=== PATIENT | male | born 1995 | race Caucasian/White ===

== ENCOUNTER → 2021-04-06 19:28 | Outpatient (CLI) | payer OTHER, SELFPAY | PROVIDERS: Visit Provider Nurse Practitioner Family | DX: Z20.822 Contact with and (suspected) exposure to COVID-19 (principal); J02.9 Acute pharyngitis, unspecified | CPT/HCPCS: C9803; U0003; U0005 ==

== ENCOUNTER 2021-04-10 10:42 | Emergency (ER) | payer OTHER, SELFPAY ==
[2021-04-10 11:24] VITALS: BP 171/120; PULSE 99; RESP 20; TEMP 37.1; O2SAT 98; BMI 31.1
--- NOTE | 2021-04-10 11:25 | HMH.EDUTC ---
[facility] [place] Clinical Impression: Mouth ulcers Sinusitis Qualifiers: Sinusitis location: unspecified location Chronicity: acute Recurrence: non-recurrent Qualified Code(s): J01.90 - Acute sinusitis, unspecified Pharyngitis Qualifiers: Pharyngitis/tonsillitis etiology: unspecified etiology Qualified Code(s): J02.9 - Acute pharyngitis, unspecified Disposition: Home, Self-Care Condition on Discharge: Good Instructions: DI for Pharyngitis/Tonsillopharyngitis -- Adult, DI for Sinusitis, Lamotrigine Additional Instructions: Stop the amoxicillin. Start the azithromycin. Start the prednisone. Gargle with salt water 3 times per day. Follow up with the provider that prescribes you the lamictal. Mouth ulcers while on lamictal can be a sign of a very serious side effect. I recommended stopping the lamictal, but that is between you and your primary provider if you do not wish to. GO TO THE ER FOR WORSENING SYMPTOMS OR CONCERNS, ESPECIALLY ANY WORSENING ULCERS IN YOUR MOUTH OR SKIN ISSUES Prescriptions: predniSONE [Prednisone 20mg Tab] 20 mg PO BID 5 Days #10 tab Transmission Status: Received by [email or web address] Azithromycin [Z-Adan 250mg Tab*] 250 mg PO UD DOSE PK #6 tab Transmission Status: Received by [email or web address] Referrals: Provider,Referral, [Primary Care Provider] - Forms: Work/School Release Time of Disposition: 11:49 Medical Decision Making - Medical Records Medical records reviewed: No: I reviewed the patient's medical records. - Saurabh Inquiry Pt receiving controlled substance: No Vital Signs: 04/10/21 11:24 04/10/21 11:56 Temperature 98.8 F 98.8 F Temperature Source Oral Pulse Rate 99 H Pulse Rate [Right Brachial] 99 H Respiratory Rate 20 18 Blood Pressure 168/99 H Blood Pressure [Right Arm] 171/120 H Blood Pressure Mean [Right Arm] 137 Blood Pressure Source [Right Arm] Automatic Cuff Blood Pressure Position [Right Arm] Sitting 02 Sat by Pulse Oximetry 98 Oxygen Delivery Method Room Air - Lab Data Lab results reviewed: Yes: I reviewed the patient's lab results. [facility] [place] - General Stated complaint: sinus infection, blisters in throat, weakness, Time Seen by Provider: 04/10/21 11:25 - History of Present Illness Provider Complaint: He states that he has been having sinus pressure and sinus infection symptoms for the past 2 weeks. He was checked for strep throat and covid-19 3 days ago and the results were negative. He states that he is having ulcers inside his mouth also. - Related Data Home Medications Medication Instructions Recorded Confirmed lamotrigine 200 mg tablet 200 mg PO DAILY 04/06/21 04/06/21 Previous Rx's Medication Instructions Recorded amoxicillin 500 mg capsule 500 mg PO Q12H 10 Days #20 cap 04/06/21 Azithromycin [Z-Adan 250mg Tab*] 250 mg PO UD DOSE PK #6 tab 04/10/21 predniSONE [Prednisone 20mg 20 mg PO BID 5 Days #10 tab 04/10/21 Tab] Allergies Allergy/AdvReac Type Severity Reaction Status Date / Time No Known Allergies Allergy Verified 04/06/21 16:07 [facility] History - Hepatitis A Screen Attestation statement:: This patient has been screened for Hepatitis A risk factors. I have reviewed the patient's past medical history: Yes Medical History: Reports:: Asthma, Depression Comment: severe nut allergy Other Surgeries: Yes: Appendectomy - 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 Smoking Status: Never smoker Alcohol Intake: never Occupational Status: employed - Psychiatric History Pschychiatric History:: Reports:: Depression Family Hx:: Coronary Artery Disease ROS Obtained: Yes All systems reviewed & no additional complaints - Constitutional Constitutional: Denies chills, Denies fever(s), Reports poor appetite, Reports malaise - Eyes Eyes: Denies eye discharge - ENT Ears, Nose, Mouth, and Throat: Reports as per HPI, Denies bleeding gums - Cardiovascular Cardiovascular: Denies chest pain - Respir
[2021-04-10 11:56] VITALS: BP 168/99; PULSE 99; RESP 18; TEMP 37.1
== END 2021-04-10 11:56 | disposition home or self-care (01) ==
PROVIDERS: Emergency Provider Nurse Practitioner Family
DX: J01.90 Acute sinusitis, unspecified (principal); K12.1 Other forms of stomatitis; J02.9 Acute pharyngitis, unspecified; J45.909 Unspecified asthma, uncomplicated; F33.1 Major depressive disorder, recurrent, moderate
CPT/HCPCS: 99202; G0463

== ENCOUNTER 2021-11-02 13:14 | Emergency (ER) | payer OTHER, SELFPAY ==
[2021-11-02 13:30] VITALS: BP 141/98; PULSE 108; RESP 21; TEMP 37.4; O2SAT 97; BMI 28.5
--- NOTE | 2021-11-02 14:25 | HMH.EDUTC ---
[facility] [place]ression: Sinusitis Qualifiers: Sinusitis location: unspecified location Chronicity: unspecified Qualified Code(s): J32.9 - Chronic sinusitis, unspecified Disposition: Home, Self-Care Condition on Discharge: Good Instructions: Sinusitis, DI for Sinusitis Additional Instructions: *Monitor Temp, Over the counter Motrin or Tylenol as directed/as needed Tylenol every 4 hours and Motrin every 6 hours (as long as your family doctor has told you that you can take it) for fever or pain. and straight to ER if unable to lower temp less than 101.0 after medication given *Warm salt water gargles may help to soothe the throat *Throat Lozenges *Warm fluids like tea with honey may help to soothe the throat *Sleep elevated *Humidifier/Vaporizer Take medication as prescribed Return if needed Follow up IMMEDIATELY for new or worsening symptoms or no Noticeable improvement over the next 48-72 hours. 911 for difficulty breathing or swallowing Prescriptions: Benzonatate [Benzonatate 100mg cap] 100 mg PO Q8HP PRN #15 cap PRN Reason: Cough Transmission Status: Pending to [facility] Amoxicillin/Potassium Clav [Amox-Clav 875-125 mg Tablet] 1 tab PO BID #14 tab Transmission Status: Pending to [facility] methylPREDNISolone [Medrol 4mg tab] 4 mg PO DIRECTED #21 tab Transmission Status: Pending to [facility] Referrals: Provider,Referral, MD [Primary Care Provider] - As needed Forms: Work/School Release Time of Disposition: 14:46 Medical Decision Making - Saurabh Inquiry Pt receiving controlled substance: No Saurahb was queried for this patient: No Vital Signs: 11/02/21 13:30 Temperature 99.4 F Temperature Source Oral Pulse Rate [Right Brachial] 108 H Respiratory Rate 21 Blood Pressure [Right Arm] 141/98 H Blood Pressure Mean [Right Arm] 112 Blood Pressure Source [Right Arm] Automatic Cuff Blood Pressure Position [Right Arm] Sitting 02 Sat by Pulse Oximetry 97 Oxygen Delivery Method Room Air [facility] [place] - General Stated complaint: cough, chest congestion, sinus pressure Time Seen by Provider: 11/02/21 14:25 Mode of Arrival: Ambulatory Source of Information: Patient Limitations: No Limitations Description of Symptoms (Recalled from Triage Doc. by RN): PATIENT C/O COUGH, WEAKNESS, AND SINUS PRESSURE HEENT Symptoms (Recalled from RN notes): Yes Resp Symptoms (Recalled from RN notes): Yes Skin Symptoms (Recalled from RN notes): No MS Symptoms (Recalled from RN notes): No Functional Status (Recalled from RN notes): WNL - History of Present Illness Provider Complaint: Patient states that he has been having sore throat, sinus pain and pressure and cough that is worse if he lays down States that he feels like it is running down the back of his throat States that today he felt the pressure worse behind his eyes and felt like it was getting worse so he came in - Related Data Home Medications Medication Instructions Recorded Confirmed Sertraline HCl [Zoloft] 25 mg PO DAILY 11/02/21 11/02/21 atenoloL [Atenolol 50mg Tab] 50 mg PO DAILY 11/02/21 11/02/21 Previous Rx's Medication Instructions Recorded Amoxicillin/Potassium Clav 1 tab PO BID #14 tab 11/02/21 [Amox-Clav 875-125 mg Tablet] Benzonatate [Benzonatate 100mg 100 mg PO Q8HP PRN #15 cap 11/02/21 cap] methylPREDNISolone [Medrol 4mg 4 mg PO DIRECTED #21 tab 11/02/21 tab] Allergies Allergy/AdvReac Type Severity Reaction Status Date / Time No Known Allergies Allergy Verified 04/06/21 16:07 - Worker's Comp Is this a Worker's Comp case?: No [facility] History - Hepatitis A Screen Attestation statement:: This patient has been screened for Hepatitis A risk factors. I have reviewed the patient's past medical history: Yes Medical History: Reports:: Asthma, Depression Comment: severe nut allergy Other Surgeries: Yes: Appendectomy - 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 Smoking Status: Nev
[2021-11-02 14:54] VITALS: BP 141/98; PULSE 108; RESP 21; TEMP 37.4; O2SAT 97
== END 2021-11-02 14:56 | disposition home or self-care (01) ==
PROVIDERS: Emergency Provider Nurse Practitioner
DX: J32.9 Chronic sinusitis, unspecified (principal)
CPT/HCPCS: 99212; G0463

== ENCOUNTER 2021-11-10 10:58 | Emergency (ER) | payer OTHER, SELFPAY ==
--- NOTE | 2021-11-10 11:18 | HMH.EDUTC ---
[facility] [place] Clinical Impression: Chronic sinusitis Qualifiers: Sinusitis location: unspecified location Qualified Code(s): J32.9 - Chronic sinusitis, unspecified Allergic rhinitis Qualifiers: Allergic rhinitis trigger: unspecified Allergic rhinitis seasonality: unspecified Qualified Code(s): J30.9 - Allergic rhinitis, unspecified Disposition: Home, Self-Care Condition on Discharge: Good Instructions: DI for Sinusitis Additional Instructions: Drink plenty of fluids. Take tylenol or ibuprofen for pain or fever. Take the medications as directed. Follow up with your regular doctor. GO TO THE ER FOR ANY WORSENING SYMPTOMS Throw your tooth brush away and get a new one. Don't start the oral steroids until tomorrow, since you had the shot here today. Prescriptions: Benzonatate [Benzonatate 100mg cap] 100 mg PO TIDP PRN #30 cap PRN Reason: Cough Transmission Status: Received by [facility] Fluticasone Propionate [Flonase 50mcg nasal spray 16gm] 1 spr NS DAILY 30 Days #120 each Transmission Status: Received by [facility] methylPREDNISolone [Medrol] 4 mg PO DIRECTED 6 Days #21 packet Transmission Status: Received by [facility] Azithromycin [Z-Adan 250mg Tab*] 250 mg PO UD DOSE PK #6 tab Transmission Status: Received by [facility] Referrals: Provider,Referral, MD [Primary Care Provider] - Forms: Work/School Release Time of Disposition: 11:47 Medical Decision Making - Medical Records Medical records reviewed: No: I reviewed the patient's medical records. - Saurabh Inquiry Pt receiving controlled substance: No Vital Signs: 11/10/21 11:23 11/10/21 11:52 Temperature 98.1 F 98.1 F Temperature Source Oral Pulse Rate 88 Pulse Rate [Left Radial] 88 Respiratory Rate 17 17 Blood Pressure 152/98 H Blood Pressure [Right Arm] 152/98 H Blood Pressure Mean [Right Arm] 116 02 Sat by Pulse Oximetry 99 - Lab Data Lab Results 11/10/21 11:15: Group A Strep Rapid Negative Orders (Tests/Meds): ED MEDICATIONS Discontinued Medications Generic Name Dose Route Start Last Admin Trade Name Freq PRN Reason Stop Dose Admin Ceftriaxone Sodium 1 gm 11/10/21 11:32 11/10/21 11:49 Ceftriaxone 1gm Vial IM 11/10/21 11:33 1 gm ONCE ONE Administration Lidocaine HCl 0 ml 11/10/21 11:32 11/10/21 11:49 Lidocaine 1% 5ml Pf Vial IM 11/10/21 11:33 2 ml ONCE ONE Administration Methylprednisolone Sodium Succinate 125 mg 11/10/21 11:32 11/10/21 11:50 Methylprednisolone Sod Succ 125mg Vial IM 11/10/21 11:33 125 mg ONCE ONE Administration ORDERS Category Date Time Status Full Resp Panel w/COVID ([facility]) Routine Lab 11/10/21 11:15 Received Strep Screen Confirmation Stat Micro 11/10/21 11:15 Received [facility] UTC HPI - General Stated complaint: Sore Throat,Congestion,Fatigue Time Seen by Provider: 11/10/21 11:19 Mode of Arrival: Ambulatory - History of Present Illness Provider Complaint: He is back today with continued sinus infecton symptoms. He has a history of having severe environalmental allergies and chronic sinus issues. He states that he did get better while he was on the medications prescribed at his last visit, but once he finished them his symptoms returned. - Related Data Home Medications Medication Instructions Recorded Confirmed Sertraline HCl [Zoloft] 25 mg PO DAILY 11/02/21 11/10/21 atenoloL [Atenolol 50mg Tab] 50 mg PO DAILY 11/02/21 11/10/21 Previous Rx's Medication Instructions Recorded Amoxicillin/Potassium Clav 1 tab PO BID #14 tab 11/02/21 [Amox-Clav 875-125 mg Tablet] Benzonatate [Benzonatate 100mg 100 mg PO Q8HP PRN #15 cap 11/02/21 cap] methylPREDNISolone [Medrol 4mg 4 mg PO DIRECTED #21 tab 11/02/21 tab] Azithromycin [Z-Adan 250mg Tab*] 250 mg PO UD DOSE PK #6 tab 11/10/21 Benzonatate [Benzonatate 100mg 100 mg PO TIDP PRN #30 cap 11/10/21 cap]
[2021-11-10 11:23] VITALS: BP 152/98; PULSE 88; RESP 17; TEMP 36.7; O2SAT 99; BMI 30.7
[2021-11-10 11:33] LABS: Adenovirus,PCR Not Detected (NotDetected); Bordetella Pertussis Not Detected (NotDetected); Chlamydophila Pneumoniae, PCR Not Detected (NotDetected); Coronavirus 19, PCR Not Detected (NotDetected); Coronavirus 229E Not Detected (NotDetected); Coronavirus NL63 Not Detected (NotDetected); Coronavirus OC43 Not Detected (NotDetected); Coronovirus HKU1,PCR Not Detected (NotDetected); Human Metapneumovirus Not Detected (NotDetected); Influenza A, PCR Not Detected (NotDetected); Influenza AH1, 2009 Not Detected (NotDetected); Influenza AH1, PCR Not Detected (NotDetected); Influenza AH3,PCR Not Detected (NotDetected); Influenza B, PCR Not Detected (NotDetected); Mycoplasma Pneumoniae, PCR Not Detected (NotDetected); Parainfluenza 1, PCR Not Detected (NotDetected); Parainfluenza 2, PCR Not Detected (NotDetected); Parainfluenza 3, PCR Not Detected (NotDetected); Parainfluenza 4, PCR Not Detected (NotDetected); Respiratory Syncytial Virus Not Detected (NotDetected)
[2021-11-10 11:50] LABS: Strep Scrn Group A (Rapid) Negative (Negative)
[2021-11-10 11:52] VITALS: BP 152/98; PULSE 88; RESP 17; TEMP 36.7
[2021-11-10 13:50] LABS: Rhinovirus/Enterovirus Detected (NotDetected)
== END 2021-11-10 12:02 | disposition home or self-care (01) ==
LOC: UTC 11:03
PROVIDERS: Emergency Provider Nurse Practitioner Family
DX: J32.9 Chronic sinusitis, unspecified (principal); B34.8 Other viral infections of unspecified site
CPT/HCPCS: 87430; 87581; 87632; 87798; 99212; C9803; G0463; J0696; U0003; U0005

== ENCOUNTER 2021-12-01 11:40 | Emergency (ER) | payer OTHER, SELFPAY ==
[2021-12-01 11:45] VITALS: BP 139/89; PULSE 68; RESP 19; TEMP 36.7; O2SAT 97; BMI 31.2
--- NOTE | 2021-12-01 11:55 | HMH.EDUTC ---
[facility] [place]ression: Uvulitis Disposition: Home, Self-Care Condition on Discharge: Good Instructions: Methylprednisolone, DI for Uvulitis Additional Instructions: *Monitor Temp, Over the counter Motrin or Tylenol as directed/as needed Tylenol every 4 hours and Motrin every 6 hours (as long as your family doctor has told you that you can take it) for fever or pain. and straight to ER if unable to lower temp less than 101.0 after medication given *Warm salt water gargles may help to soothe the throat *Throat Lozenges *Warm fluids like tea with honey may help to soothe the throat *Sleep elevated *Humidifier/Vaporizer Make sure that you are drinking plenty of water to stay hydrated Make sure to discuss with your Family Doctor if no improvement Follow up with ENT if no improvement or any worsening of symptoms Your throat swab was sent for culture. Those results are typically sent to your primary care. Be sure to follow up in 2-3 days with your family doctor/primary care physician if no improvement so they can review those result and treat if necessary. If you don?t have a primary care doctor, I recommend you get one but in the mean time, you will have to return to a walk in clinic Follow up IMMEDIATELY for new or worsening symptoms or no Noticeable improvement over the next 48-72 hours. 911 for difficulty breathing or swallowing Prescriptions: methylPREDNISolone [Medrol 4mg tab] 4 mg PO DIRECTED #21 tab Transmission Status: Received by [facility] Cefdinir [Omnicef 300mg Capsule] 300 mg PO BID 7 Days #14 cap Transmission Status: Received by [facility] Referrals: Provider,MD Priya [Primary Care Provider] - As needed Kyaw Galloway MD [Physician] - Bryan Fernandez MD [Physician] - Forms: Work/School Release Medical Decision Making - Saurabh Inquiry Pt receiving controlled substance: No Saurabh was queried for this patient: No Vital Signs: 12/01/21 11:45 12/01/21 12:25 Temperature 98.1 F 98.1 F Temperature Source Oral Pulse Rate 68 Pulse Rate [Right Brachial] 68 Respiratory Rate 19 19 Blood Pressure 139/89 Blood Pressure [Right Arm] 139/89 Blood Pressure Mean [Right Arm] 105 Blood Pressure Source [Right Arm] Automatic Cuff Blood Pressure Position [Right Arm] Sitting 02 Sat by Pulse Oximetry 97 Oxygen Delivery Method Room Air - Lab Data Lab results reviewed: Yes: I reviewed the patient's lab results. Lab Results 12/01/21 11:45: Strep Scn Rapid Clinic Negative 12/01/21 11:54: Monoscreen Negative Orders (Tests/Meds): ED MEDICATIONS Discontinued Medications Generic Name Dose Route Start Last Admin Trade Name Oanh PRN Reason Stop Dose Admin Methylprednisolone Sodium Succinate 125 mg 12/01/21 12:19 12/01/21 12:25 Methylprednisolone Sod Succ 125mg Vial IM 12/01/21 12:20 125 mg ONCE ONE Administration ORDERS Category Date Time Status Strep Screen Confirmation Stat Micro 12/01/21 11:45 Re[place] [facility] [place] - General Stated complaint: swollen throat Time Seen by Provider: 12/01/21 11:55 Mode of Arrival: Ambulatory Source of Information: Patient Limitations: No Limitations Description of Symptoms (Recalled from Triage Doc. by RN): PATIENT C/O SWOLLEN UVULA SINCE THIS MORNING HEENT Symptoms (Recalled from RN notes): Yes Resp Symptoms (Recalled from RN notes): No Skin Symptoms (Recalled from RN notes): No MS Symptoms (Recalled from RN notes): No Functional Status (Recalled from RN notes): WNL - History of Present Illness Provider Complaint: Patient states that he woke up this morning with scratchy throat and swollen uvulea States that he has been having drainage in the back of his throat and congestion but hard to clear his throat due to the swollen uvulea Denies anything new that he may be having a reaction too - Related Data Home Medications Medication Instructions Recorded Confirmed Sertraline HCl [
[2021-12-01 12:00] LABS: UTC Strep Screen (Rapid) Negative (Negative)
[2021-12-01 12:13] LABS: Monoscreen (Rapid) Negative (Negative)
[2021-12-01 12:25] VITALS: BP 139/89; PULSE 68; RESP 19; TEMP 36.7; O2SAT 97
== END 2021-12-01 12:35 | disposition home or self-care (01) ==
PROVIDERS: Emergency Provider Nurse Practitioner
DX: K12.2 Cellulitis and abscess of mouth (principal)
CPT/HCPCS: 86318; 87880; 96372; 99212; G0463

== ENCOUNTER 2022-08-19 15:18 | Emergency (ER) | payer BC, SELFPAY ==
[2022-08-19 15:40] VITALS: BP 163/103; PULSE 80; RESP 18; TEMP 37.2; O2SAT 97; BMI 33.7
--- NOTE | 2022-08-19 16:10 | EXP.UTC ---
Discharge Plan Disposition Patient Disposition: Home, Self-Care Condition: Good Prescriptions Prescriptions: New azithromycin [azithromycin] 250 mg tablet 250 mg PO DIRECTED Qty: 6 0RF Rx Instructions: Take two (2) tablets on day #1, then one (1) tablet day #2 thru #5 prednisone [prednisone] 20 mg tablet 20 mg PO BID Qty: 10 0RF No Action sertraline 25 MG tablet 25 mg PO DAILY atenolol 50 MG tablet 50 mg PO DAILY methylprednisolone 4 MG tablet 4 mg PO DIRECTED Qty: 21 0RF Rx Instructions: Take as directed on package instructions Start on 12/02/21 cefdinir 300 MG capsule 300 mg PO BID 7 Days Qty: 14 0RF Referrals Follow up/Referrals: Provider,Referral, MD [Primary Care Provider] - See instructions Clinical Impressions Clinical Impression: Sinusitis Instructions Patient Instructions: DI for Sinusitis Discharge ED Provider: Lyn ([facility])Helen [facility] [place] General Stated complaint: Congestion,cough,blisters in mouth Mode of Arrival: Ambulatory Source of Information: Patient Limitations: No Limitations Time Seen by Provider: 08/19/22 16:10 Description of Symptoms (Recalled from Triage Doc. by RN): PATIENT C/O SINUS CONGESTION, DRAINAGE, AND BLISTERS IN MOUTH HEENT Symptoms (Recalled from RN notes): Yes Resp Symptoms (Recalled from RN notes): No Skin Symptoms (Recalled from RN notes): No MS Symptoms (Recalled from RN notes): No Functional Status (Recalled from RN notes): WNL History of Present Illness Provider Complaint: 26 yr old male presents for green nasal drainage, congestion, sinus pressure and blisters in mouth Related Data Home Medications Medication Instructions Recorded Confirmed atenolol 50 mg tablet 50 mg PO DAILY Hypertension 11/02/21 12/01/21 sertraline 25 mg tablet 25 mg PO DAILY Anxiety 11/02/21 12/01/21 Previous Rx's Medication Instructions Recorded cefdinir 300 mg capsule 300 mg PO BID 7 days #14 caps 12/01/21 methylprednisolone 4 mg tablet 4 mg PO DIRECTED #21 tabs 12/01/21 azithromycin 250 mg tablet 250 mg PO DIRECTED #6 tabs 08/19/22 prednisone 20 mg tablet 20 mg PO BID #10 tabs 08/19/22 Allergies Allergy/AdvReac Type Severity Reaction Status Date / Time No Known Allergies Allergy Verified 11/10/21 11:26 Worker's Comp Is this a Worker's Comp case?: No [facility] Disclaimer: The information contained in this section may have been updated after the patient was seen, as this information can be updated by other users. 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: Never smoker alcohol intake: current current occupational status: other Travel in the last 8 weeks: None ROS Obtained: Yes All systems reviewed & no additional complaints except as documented Constitutional Constitutional: Reports system reviewed and no additional complaints, except as documented and Reports as per HPI Eyes Eyes: Reports system reviewed and no additional complaints, except as documented ENT Ears, Nose, Mouth, and Throat: Reports system reviewed and no additional complaints, except as documented, Reports as per HPI, Reports facial pain, Reports nasal congestion, Reports nasal discharge, Reports sinus pain, Reports sinus pressure, Reports sore throat and Reports other Cardiovascular Cardiovascular: Reports system reviewed and no additional complaints, except as documented Respiratory Respiratory: Reports system reviewed and no additional complaints, except as documented Musculoskeletal Musculoskeletal: Reports system reviewed and no additional complaints, except as documented Integumentary/Breasts Skin/Breast: Reports system reviewed and no additional complaints, except as documented Neurologic Neurologic: Reports system reviewed and no additional complaints, except as documented Endocrine Endocrine: Reports system reviewed and no additional complaints, except as documented Hematol
[2022-08-19 16:21] VITALS: BP 163/103; PULSE 80; RESP 18; TEMP 37.2; O2SAT 97
== END 2022-08-19 16:25 | disposition home or self-care (01) ==
PROVIDERS: Emergency Provider Nurse Practitioner Family
DX: J01.90 Acute sinusitis, unspecified (principal); R05.1 Acute cough
CPT/HCPCS: 99212; 99214; G0463